=== PATIENT | female | born 1990 | race Caucasian/White ===

== ENCOUNTER 2017-03-24 17:28 | Emergency (ER) | payer BC ==
[~2017-03-24] VITALS: Ht 154.9 cm; Wt 48.5 kg
[2017-03-24 18:05] LABS: ADD MIUA? YES; BILIRUBIN NEGATIVE; BLOOD SMALL; COLOR COLORLESS ((YELLOW)); GLUCOSE (STRIP) NEGATIVE; KETONES NEGATIVE; LEUKOCYTES SMALL; NITRITE NEGATIVE; PROTEIN (STRIP) NEGATIVE; SPECIFIC GRAVITY 1.002 (1.000-1.030); UROBILINOGEN 0.2 MG/DL (0.2-1.0)
[2017-03-24 18:06] LABS: HEMATOCRIT 39.8 % (36.0-46.0); MCH 30.1 PG (29.0-34.0); MCHC 33.9 G/DL (30.0-36.0); MCV 88.8 FL (83-99); MEAN PLAT.VOLUME 9.9 uM^3 (9.5-12.4); PLATELET COUNT 201 K/uL (156-360); RBC DIS.WIDTH-CV 13.1 % (11.8-14.6); RED BLOOD COUNT 4.48 M/uL (3.80-5.20); WHITE BLOOD COUNT 8.4 K/uL (4.1-10.2)
[2017-03-24 18:10] LABS: BACTERIA RARE /HPF; EPITHELIAL CELLS NONE SEEN /HPF; MUCUS NONE SEEN /LPF; RED BLOOD CELLS 0-5 /HPF (0-5); UCUL ADDED? NO; WHITE BLOOD CELLS 0-5 /HPF (0-5)
[2017-03-24 18:26] LABS: CHLORIDE 105 mEq/L (99-109); POTASSIUM 3.9 mEq/L (3.7-5.4); SODIUM 138 mEq/L (136-147)
[2017-03-24 18:28] LABS: GLUCOSE 83 mg/dL (70-99)
[2017-03-24 18:29] LABS: ANION GAP 8 MEQ/L (2-14)
[2017-03-24 18:30] LABS: TOTAL BILIRUBIN 0.6 mg/dL (0.0-1.0)
[2017-03-24 18:32] LABS: ALKALINE PHOSPHATASE 47 IU/L (3-129); GFR ESTIMATE (CALCULATED) > 59 mL/min/
[2017-03-24 18:33] LABS: UREA NITROGEN (BUN) 13 mg/dL (9-23)
[2017-03-24] MEDS ORDERED: PYRIDIUM200 MG PO (18:35)
[2017-03-24] MEDS ORDERED: KEFLEX500 MG PO (18:35)
[2017-03-24 18:42] LABS: QUANTITATIVE HCG < 4.0 MIU/ML
[2017-03-24 19:06] VITALS: BP 111/79
== END 2017-03-24 19:07 | disposition home or self-care (01) ==
LOC: EME 17:28
DX: N30.01 Acute cystitis with hematuria (principal); Z87.891 Personal history of nicotine dependence
CPT/HCPCS: 80053; 81003; 84702; 85027; 87086; 99281; 99284